=== PATIENT | male | born 1995 | race African-American/Black ===

== ENCOUNTER 2020-10-23 21:17 | Emergency (ER) | payer OTHER ==
[2020-10-23] MEDS ORDERED: Ondansetron ODT 4 MG TAB ONE (22:06)
[2020-10-23] MEDS ORDERED: Ketorolac Tromethamine 30 MG/ML VIAL ONE (22:06)
== END 2020-10-23 22:39 | disposition home or self-care (01) ==
LOC: ERS 21:17
DX: K29.70 Gastritis, unspecified, without bleeding (principal); R51.9 Headache, unspecified
CPT/HCPCS: 93005; 96372; J1885; Q0162

== ENCOUNTER 2025-04-25 01:35 | Emergency (ER) | payer MEDICAID, OTHER, SELFPAY ==
[2025-04-25] MEDS ORDERED: Acetaminophen 500 MG TAB ONE ×2 (01:48→01:51)
[2025-04-25 04:12] LABS: Cocaine Metabolite Screen PRELIM POSITIVE (Negative); THC/Cannabinoid Screen Negative (Negative); Tricyclic Screen Negative (Negative)
[2025-04-25 04:44] LABS: ALT (SGPT) 18 U/L (Less than 45); AST (SGOT) 18 U/L (11-34); Albumin 4.4 g/dL (3.1-4.5); Alkaline Phosphatase 69 U/L (40-110); Anion Gap 14 mmol/L (10-20); BUN (Urea Nitrogen) 12 mg/dL (8.9-20.6); Bilirubin, Total 0.2 mg/dL (0.3-1.2); Calc. Creatinine Clearance 0 mL/min (70-130); Calcium 9.6 mg/dL (7.8-10.44); Carbon Dioxide 22 mmol/L (22-29); Chloride 107 mmol/L (98-107); Globulin 2.7 g/dL (2.4-3.5); Glucose 101 mg/dL (70-105); Potassium 4.1 mmol/L (3.5-5.1); Sodium 139 mmol/L (136-145)
[2025-04-25 05:21] LABS: #Basophils 0.06 10x3/uL (0.0-0.2); #Eosinophils 0.05 10x3/uL (0.0-0.7); #Monocytes 0.86 10x3/uL (0.11-0.59); #Neutrophils 8.79 10x3/uL (1.40-6.50); %Basophils 0.5 % (0.0-1.0); %Eosinophils 0.4 % (0.0-10.0); %Lymphocytes 26.0 % (21.0-51.0); %Monocytes 6.5 % (0.0-10.0); %Neutrophils 66.0 % (42.0-75.0); Hematocrit 38.9 % (42.0-52.0); Hemoglobin 13.7 g/dL (14.0-18.0); Mean Corpuscular Hemoglobin 26.1 pg (27.0-31.0); Mean Corpuscular Volume 74.1 fL (78.0-98.0); Platelet Count 263 10x3/uL (130-400); Red Blood Cell (RBC) Count 5.25 mill/uL (4.70-6.10); White Blood Cell (WBC) Count 13.30 10x3/uL (4.8-10.8)
[2025-04-25 06:15] LABS: Microcytosis SLIGHT = 6-15 cells HPF (0-5); Platelet Adequacy Comment Platelets Normal
== END 2025-04-25 07:25 | disposition home or self-care (01) ==
LOC: ERS 01:35
DX: R07.9 Chest pain, unspecified (principal)
CPT/HCPCS: 36415; 71045; 80053; 80306; 84484; 85025; 93005; 96374; 96375; J2060